=== PATIENT | female | born 1965 | race Caucasian/White ===

== ENCOUNTER 2017-04-29 19:07 | Emergency (ER) | payer OTHER ==
[2017-04-29 19:13] VITALS: BP 161/104; PULSE 114; TEMP 98; BMI 26.6
--- NOTE | 2017-04-29 19:13 | PDOC ---
Rapid Medical Evaluation Time Seen by Provider: 04/29/17 19:09 Medical Evaluation: Allergies Allergy/AdvReac Type Severity Reaction Status Date / Time fentanyl Allergy Severe throat Verified 11/08/15 17:34 closes ketorolac tromethamine AdvReac Intermediate Vomiting Verified 11/08/15 17:34 [From Toradol] morphine AdvReac Mild Itching Verified 11/08/15 17:34 04/29/17 19:09 pt with pain to right leg behind knee across knee to the ankle and swelling to calf. pt denies injury. no PMHX. 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
--- NOTE | 2017-04-29 21:38 | PDOC ---
History of Present Illness - General History Source: Patient Exam Limitations: No Limitations - History of Present Illness Initial Comments: 04/29/17 21:55 The patient is a 51 year old female with a significant PMH of sciatica who presents to the emergency department with right leg pain for the past week and a half. The patient states the pain worsened two days ago when it was difficult for her to walk or stand on her feet. The patient has been in bed for the past 3 days due to increased right leg pain on exertion. The patient describes the right leg pain as a constant throbbing pain that radiates from the back of the right knee to the right ankle. The patient reports she took Motrin with no relief of symptoms. The patient states this does not feel like her sciatica. The patient denies chest pain, shortness of breath, headache and dizziness. Denies fever, chills, nausea, vomit, diarrhea and constipation. Allergies: NKA Past surgical history: None reported Social history: No reported alcohol, drug, or cigarette use. PCP: Dr. Cochran <Maureen Cadena - Last Filed: 04/29/17 21:55> <Yenifer Luque - Last Filed: 04/29/17 22:50> - General Chief Complaint: Pain, Acute Stated Complaint: RT LEG PAIN Time Seen by Provider: 04/29/17 19:09 Past History <Maureen Cadena - Last Filed: 04/29/17 21:55> - Past Medical History Anemia: No Asthma: No Cancer: No Cardiac Disorders: No CVA: No COPD: No CHF: No Dementia: No Diabetes: No GI Disorders: Yes (gerd) Disorders: Yes (UTI) HTN: Yes Hypercholesterolemia: No Liver Disease: No Seizures: No Thyroid Disease: No - Surgical History Abdominal Surgery: Yes (tubal ligation) Cholecystectomy: Yes (1999) - Immunization History Immunization Up to Date: Yes - Suicide/Smoking/Psychosocial Hx Smoking Status: No Smoking History: Former smoker Have you smoked in the past 12 months: No Number of Cigarettes Smoked Daily: 0 If you are a former smoker, when did you quit?: years ago Information on smoking cessation initiated: No Hx Alcohol Use: No Drug/Substance Use Hx: No Substance Use Type: None Hx Substance Use Treatment: No <Yenifer Luque - Last Filed: 04/29/17 22:50> - Past Medical History Allergies/Adverse Reactions: Allergies Allergy/AdvReac Type Severity Reaction Status Date / Time fentanyl Allergy Severe throat Verified 11/08/15 17:34 closes ketorolac tromethamine AdvReac Intermediate Vomiting Verified 11/08/15 17:34 [From Toradol] morphine AdvReac Mild Itching Verified 11/08/15 17:34 Home Medications: Ambulatory Orders Diltiazem [Cardizem -] 60 mg PO TID 04/29/17 Ibuprofen 800 mg PO TID #30 tablet 04/29/17 Oxycodone HCl/Acetaminophen [Percocet 5-325 mg Tablet] 1 tab PO Q6H PRN #12 tablet MDD 4 04/29/17 Review of Systems - Review of Systems Able to Perform ROS?: Yes Comments:: 04/29/17 21:57 GENERAL/CONSTITUTIONAL: No fever or chills. No weakness. HEAD, EYES, EARS, NOSE AND THROAT: No change in vision. No ear pain or discharge. No sore throat. CARDIOVASCULAR: No chest pain or shortness of breath. RESPIRATORY: No cough, wheezing, or hemoptysis. GASTROINTESTINAL: No nausea, vomiting, diarrhea or constipation. GENITOURINARY: No dysuria, frequency, or change in urination. MUSCULOSKELETAL: (+) Right leg pain. No joint swelling or pain. No neck or back pain. SKIN: No rash NEUROLOGIC: No headache, vertigo, loss of consciousness, or change in strength/ sensation. ENDOCRINE: No increased thirst. No abnormal weight change. HEMATOLOGIC/LYMPHATIC: No anemia, easy bleeding, or history of blood clots. ALLERGIC/IMMUNOLOGIC: No hives or skin allergy. <Maureen Cadena - Last Filed: 04/29/17 21:55> *Physical Exam - Vital Signs Last Vital Signs Temp Pulse Resp BP Pulse Ox 98 F 114 H 18 161/104 99 04/29/17 19:10 04/29/17 19:10 04/29/17 19:10 04/29/17 19:10 04/29/17 19:10 - Physical Exam Comments: 04/29/17 21:58 GENERAL: Awake, alert, and fully oriented, in no acute distress HEAD: No signs of trauma EYES: PERRLA, EOMI, sclera anicteric, conjunctiva clear ENT: Auricles normal inspection, hearing grossly normal, nares patent, oropharynx clear without exudates. Moist mucosa NECK: Normal ROM, supple, no lymphadenopathy, JVD, or masses LUNGS: Breath sounds equal, clear to auscultation bilaterally. No wheezes, and no crackles HEART: Regular rate and rhythm, normal S1 and S2, no murmurs, rubs or gallops ABDOMEN: Soft, nontender, normoactive bowel sounds. No guarding, no rebound. No masses BACK: (+) Some tenderness to the right lower back. EXTREMITIES: (+) 3/5 strength with dorsiflexion. (+) 4/5 strength with knee flexion. (+) Tender to palpation of the entire right leg. Normal range of motion , no edema. No clubbing or cyanosis. No cords or erythema. NEUROLOGICAL: Cranial nerves II through XII grossly intact. Normal speech, normal gait SKIN: Warm, Dry, normal turgor, no rashes or lesions noted. <Maureen Cadena - Last Filed: 04/29/17 21:55> - Vital Signs Last Vital Signs Temp Pulse Resp BP Pulse Ox 98 F 114 H 18 161/104 99 04/29/17 19:10 04/29/17 19:10 04/29/17 19:10 04/29/17 19:10 04/29/17 19:10 <Yenifer Luque - Last Filed: 04/29/17 22:50> ED Treatment Course - Medications Given in the ED: ED Medications Discontinued Medications Generic Name Dose Route Start Last Admin Trade Name Freq PRN Reason Stop Dose Admin Oxycodone/Acetaminophen 1 combo 04/29/17 21:39 04/29/17 21:51 Percocet 5/325 - PO 04/29/17 21:40 1 combo ONCE ONE Administration <Maureen Cadena - Last Filed: 04/29/17 21:55> *DC/Admit/Observation/Transfer - Attestations Scribe Attestion: 04/29/17 22:00 Documentation prepared by Maureen Cadena, acting as medical oncologist for Samuel Ruiz MD. <Maureen Cadena - Last Filed: 04/29/17 21:55> - Discharge Dispostion Admit: No <Yenifer Luque - Last Filed: 12/04/17 22:50> Diagnosis at time of Disposition: Leg pain, right - Discharge Dispostion Disposition: HOME Condition at time of disposition: Stable - Referrals Referrals: Tricia Cochran MD [Primary Care Provider] - Smith Luna MD [Staff Physician] - - Patient Instructions Printed Discharge Instructions: DI for Leg Pain, DI for Low Back Pain Additional Instructions: Your ultrasound study was negative today for DVT, Rhoades's cyst. Please follow- up with Dr. Luna within the next 2-3 days to have him evaluate both your leg and back. Please take the Motrin 800 mg 3 times a day not to exceed 3000 mg a day. Your also prescribed Percocet as needed for pain. Please follow the dosing instructions on the bottle. You may use heat packs to both the leg in the lower back to help relieve her symptoms. Return to the emergency department if you have worsening leg pain, numbness and tingling of the leg, fevers, chills, shortness of breath, bladder or bowel incontinence, or any changes in your symptoms. - Post Discharge Activity
== END 2017-04-29 22:52 | disposition home or self-care (01) ==
LOC: JERFT 19:07
DX: M79.604 Pain in right leg (principal); K21.9 Gastro-esophageal reflux disease without esophagitis; I10 Essential (primary) hypertension; Z87.891 Personal history of nicotine dependence
CPT/HCPCS: 93971-TC; 99281-25

== ENCOUNTER 2017-07-30 07:50 | Observation (INO) | payer OTHER ==
[2017-07-30 08:03] VITALS: BMI 28.1
--- NOTE | 2017-07-30 08:19 | PDOC ---
History of Present Illness <FavianJessica - Last Filed: 07/30/17 09:42> - History of Present Illness Initial Comments: 07/30/17 08:51 The patient is a 52 year old female with a history of HTN, Tachycardia, who presents for evaluation of chest pain. The patient states that her BP was elevated yesterday with an associated headache. She noted that around 4 am she woke up out of sleep with left sided chest pressure and sharp pain with associated nausea prompting her presentation to the ED for evaluation. She states that she had similar symptoms in the past when her BP is elevated, but states that her current symptoms are the worst they have ever been. She otherwise denies fevers, chills, vomiting, abdominal pain, or changes with urination or bowel movements. <RadhaRiley - Last Filed: 07/30/17 10:20> - General Chief Complaint: Chest Pain Stated Complaint: CHEST PAIN Time Seen by Provider: 07/30/17 08:04 Past History <FavianJessica - Last Filed: 07/30/17 09:42> - Past Medical History Anemia: No Asthma: No Cancer: No Cardiac Disorders: No CVA: No COPD: No CHF: No Dementia: No Diabetes: No GI Disorders: Yes (gerd) Disorders: Yes (UTI) HTN: Yes Hypercholesterolemia: No Liver Disease: No Seizures: No Thyroid Disease: No - Surgical History Abdominal Surgery: Yes (tubal ligation) Cholecystectomy: Yes (1999) - Immunization History Immunization Up to Date: Yes - Suicide/Smoking/Psychosocial Hx Smoking Status: No Smoking History: Former smoker Have you smoked in the past 12 months: No Number of Cigarettes Smoked Daily: 0 If you are a former smoker, when did you quit?: years ago Information on smoking cessation initiated: No Hx Alcohol Use: No Drug/Substance Use Hx: No Substance Use Type: None Hx Substance Use Treatment: No <RadhaRiley - Last Filed: 07/30/17 10:20> - Past Medical History Allergies/Adverse Reactions: Allergies Allergy/AdvReac Type Severity Reaction Status Date / Time fentanyl Allergy Severe throat Verified 07/30/17 07:58 closes ketorolac tromethamine AdvReac Intermediate Vomiting Verified 07/30/17 07:58 [From Toradol] morphine AdvReac Mild Itching Verified 07/30/17 07:58 Home Medications: Ambulatory Orders Diltiazem [Cardizem -] 60 mg PO BID 04/29/17 Ibuprofen 800 mg PO TID #30 tablet 04/29/17 Review of Systems - Review of Systems Comments:: 07/30/17 08:57 Constitutional: No fevers, chills, fatigue, malaise HEENT: No Rhinorrhea, nasal congestion, visual changes Cardiovascular: Chest pain. No syncope, palpitations, lightheadedness Respiratory: No Cough, SOB, Hemoptysis, Gastrointestinal: Nausea. No Abdominal pain, Vomiting, Constipation, Diarrhea, Melena Genitourinary: No Dysuria, Frequency, Urgency, Hesitancy, Hematuria, Flank pain Musculoskeletal: No Myalgia, arthralgia Skin: No rashes, itching, bruising, pallor Neurologic: Headache. No Dizziness, Numbness, Weakness, or Tingling Psychiatric: No Hallucinations. No SI or HI <Riley Garcia - Last Filed: 07/30/17 10:20> *Physical Exam - Vital Signs Last Vital Signs Temp Pulse Resp BP Pulse Ox 97.4 F L 86 17 147/93 100 07/30/17 07:58 07/30/17 09:31 07/30/17 09:31 07/30/17 09:31 07/30/17 09:31 <Jessica Ballesteros - Last Filed: 07/30/17 09:42> - Vital Signs Last Vital Signs Temp Pulse Resp BP Pulse Ox 97.4 F L 123 H 18 158/102 99 07/30/17 07:58 07/30/17 07:58 07/30/17 07:58 07/30/17 07:58 07/30/17 07:58 - Physical Exam Comments: 07/30/17 08:58 General Appearance: Nourished. No Apparent Distress HEENT: EOMI, IRENE. No Pharyngeal Erythema, Tonsillar Exudate, Tonsillar Erythema Neck: No Cervical Lymphadenopathy Respiratory/Chest: Lungs Clear, Normal Breath Sounds. No Crackles, Rales, Rhonchi, Wheezing Cardiovascular: Regular Rhythm, Tachycardic Rate. No Murmur, Gallops, Rubs Gastrointestinal/Abdominal: Normal Bowel Sounds, Soft. No Guarding, Rebound, Tenderness Musculoskeletal: No CVA Tenderness Extremity: Normal Capillary Refill Integumentary: Normal Color, Dry, Warm Neurologic: Fully Oriented, Alert, Normal Mood/Affect, Normal Response, <Riley Garcia - Last Filed: 07/30/17 10:20> Heart Score/ECG Review #1 ECG reviewed & interpreted by me at: 08:59 (Tachycardic with poor R wave progression) General ECG Interpretation: Sinus Rhythm, Normal Intervals, No acute ischemic changes Compared to previous ECG there are: Changes noted (New poor R wave progression when compared to 11/08/15) <Riley Garcia - Last Filed: 07/30/17 10:20> ED Treatment Course - LABORATORY CBC & Chemistry Diagram: 07/30/17 08:25 07/30/17 08:25 - ADDITIONAL ORDERS Additional order review: Laboratory Results 07/30/17 07/30/17 08:44 08:25 D-Dimer 374 Sodium 139 Potassium 3.5 Chloride 106 Carbon Dioxide 23 Anion Gap 10 BUN 9 Creatinine 0.6 Creat Clearance w eGFR > 60 Random Glucose 104 Calcium 8.7 Total Bilirubin 0.4 D AST 11 L ALT 17 Alkaline Phosphatase 69 Creatine Kinase 43 Troponin I < 0.02 Total Protein 7.6 Albumin 3.9 07/30/17 08:25 RBC 4.95 MCV 88.0 MCHC 34.3 RDW 13.6 MPV 9.3 D Neutrophils % 75.4 Lymphocytes % 17.5 Monocytes % 4.9 Eosinophils % 1.4 Basophils % 0.8 - Medications Given in the ED: ED Medications Discontinued Medications Generic Name Dose Route Start Last Admin Trade Name Freq PRN Reason Stop Dose Admin Acetaminophen 1,000 mg 07/30/17 08:33 07/30/17 08:54 Ofirmev Injection - IVPB 07/30/17 08:34 1,000 mg ONCE ONE Administration Diltiazem HCl 30 mg 07/30/17 08:33 07/30/17 08:54 Cardizem - PO 07/30/17 08:34 30 mg ONCE ONE Administration <Jessica Ballesteros - Last Filed: 07/30/17 09:42> - LABORATORY CBC & Chemistry Diagram: 07/30/17 08:25 07/30/17 08:25 - RADIOLOGY Radiology Studies Ordered: Category Date Time Status CHEST X-RAY PORTABLE* [RAD] Stat Radiology 07/30/17 08:17 Ordered <Riley Garcia - Last Filed: 07/30/17 10:20> Medical Decision Making - Medical Decision Making 07/30/17 09:42 Dr. Negrete was paged and notified via phone service. <Jessica Ballesteros - Last Filed: 07/30/17 09:42> - Medical Decision Making 07/30/17 09:00 The patient is a 52 year old female with a history of HTN, Tachycardia, who presents for evaluation of chest pain. Differential includes but is not limited to: ACS, PE, Pneumonia, Musculoskeletal, infectious, metabolic derangement. Given the patient's history and physical exam, we will obtain a cbc, cmp, d-dimer, troponin, chest plain film to evaluate for possible etiologies. We will treat in the meantime with iv tylenol and diltiazem. We will continue to monitor and reassess. 07/30/17 09:43 CBC, cmp, d-dimer, troponin are unremarkable. Chest plain film is unremarkable as read by our radiologist. EKG demonstrated no acute ischemic changes, but does demonstrate new poor R wave progression when compared with prior. 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 Negrete. 07/30/17 10:18 We discussed the case with Dr. Negrete who agrees with observation admission for further work up. We discussed the case with the hospitalist team who accepted the patient for admission. <Riley Garcia - Last Filed: 07/30/17 10:20> *DC/Admit/Observation/Transfer <Jessica Ballesteros - Last Filed: 07/30/17 09:42> - Discharge Dispostion Admit: Yes <Riley Garcia - Last Filed: 07/30/17 10:20> Diagnosis at time of Disposition: Chest pain Qualifiers: Chest pain type: unspecified Qualified Code(s): R07.9 - Chest pain, unspecified - Discharge Dispostion Condition at time of disposition: Stable - Referrals Referrals: Tricia Cochran MD [Primary Care Provider] - - Patient Instructions - Post Discharge Activity
[2017-07-30] MEDS ORDERED: dilTIAZem HCL 30 MG TABLET (FP) PO ONE (08:33)
[2017-07-30] MEDS ORDERED: ACETAMINOPHEN 1000 MG/100 ML VIAL (NON FORMULARY) IVPB ONE (08:33)
[2017-07-30] MEDS ORDERED: ACETAMINOPHEN INJECTION 100 ML IVPB ONE (08:47)
[2017-07-30] MEDS ORDERED: dilTIAZem HCL 30 MG TABLET (FP) ONE (08:47)
[2017-07-30 08:48] LABS: BASO % 0.8 % (0-2.0); EOS % 1.4 % (0-4.5); HEMATOCRIT 43.6 % (32.4-45.2); HEMOGLOBIN 14.9 GM/dL (10.7-15.3); LYMPH % 17.5 % (8-40); MCH 30.2 pg (25.7-33.7); MCHC 34.3 g/dl (32.0-36.0); MEAN PLT VOLUME 9.3 fl (7.5-11.1); MONO % 4.9 % (3.8-10.2); NEUT % 75.4 % (42.8-82.8); PLATELET COUNT 220 K/MM3 (134-434); RBC 4.95 M/mm3 (3.60-5.2); RDW 13.6 % (11.6-15.6); WHITE BLOOD COUNT 8.3 K/mm3 (4.0-10.0)
[2017-07-30 09:07] LABS: ALBUMIN 3.9 g/dl (3.4-5.0); ANION GAP 10 (8-16); BILIRUBIN,TOTAL 0.4 mg/dL (0.2-1.0); BLOOD UREA NITROGEN 9 mg/dL (7-18); CALCIUM 8.7 mg/dL (8.5-10.1); CHLORIDE 106 mmol/L (98-107); CO2 23 mmol/L (21-32); CREATININE 0.6 mg/dL (0.55-1.02); GLUCOSE,RANDOM 104 mg/dL (74-106); POTASSIUM 3.5 mmol/L (3.5-5.1); SGOT/AST 11 U/L (15-37); SGPT/ALT 17 U/L (12-78); SODIUM 139 mmol/L (136-145); TOT PROT 7.6 g/dl (6.4-8.2)
[2017-07-30 09:10] LABS: ALK PHOS 69 U/L (45-117)
--- NOTE | 2017-07-30 09:44 | PDOC ---
Attending Attestation - Resident Resident Name: Riley Garcia - ED Attending Attestation I have performed the following: I have examined & evaluated the patient, The case was reviewed & discussed with the resident, I agree w/resident's findings & plan, Exceptions are as noted - HPI HPI: 07/30/17 09:39 52y/o female with history of tachycardia and hypertension, fibromyalgia presents with headache and left chest discomfort since last night in the setting of elevated blood pressures since yesterday. Patient took extra doses of her amlodipine without improvement, presents today after the chest pain started. Pain is nonexertional, at baseline has unlimited exercise tolerance. No cough or fevers or chills. No recent leg swelling. 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 - Physicial Exam PE: 07/30/17 09:40 Blood pressure slightly elevated, heart rate 92 on my exam Regular, no murmurs Lungs are clear No edema Neurologically intact - Medical Decision Making 07/30/17 09:41 Patient seen and evaluated with the resident. I agree with the overall evaluation, assessment, and management with the following summary of visit: 52-year-old female with atypical chest pain and headache in the setting of elevated blood pressures for one day, otherwise well-appearing and neurologically intact. Dose of diltiazem for tachycardia and elevated blood pressure, vitals improved Labs including troponin and d-dimer sent and normal Chest x-ray negative EKG without acute ischemia but compared to 2016 has poor R-wave progression in the precordial leads. We'll discuss plan with Dr. Negrete Heart Score/ECG Review #1 ECG reviewed & interpreted by me at: 07:58 General ECG Interpretation: Sinus Rhythm (slight tachy at 109), Normal Intervals (qtc 441), No acute ischemic changes (PRWP, Q3 unchanged c/w 11/09)
[2017-07-30] MEDS ORDERED: ASPIRIN 325 MG ENTERIC COATED TABLET (FP) PO ONE (11:10)
--- NOTE | 2017-07-30 11:27 | HP ---
CHIEF COMPLAINT: chest pain, headache PCP: Dr. Cochran HISTORY OF PRESENT ILLNESS: 52 year old female with a history of hypertension and GERD presented to the ED complaining of headache and left sided chest pain of 1 day duration. Patient states that yesterday she went out with her friends. Her headache started early yesterday evening at home. She checked her blood pressure, found it to be elevated, and took 10mg norvasc. Her BP did not reduce on the norvasc and so she took 5 more of norvasc. Later that night she took 10 more of norvasc for a total of 25mg that evening. She went to sleep and woke up at 4am with continued headache and new L sided chest pain that did not radiate to her neck or her arm. She reported it as a pressure or tightness at a 7-8/10 in severity. She checked her BP again and took an additional 10mg of norvasc as well as 30mg of cardizem. She reported to me that she does not take norvasc regularly and only takes it as needed for blood pressure. Denies blurry vision. She presented to the emergency department when the chest pain did not go away. She states that she can sometimes get episodes of chest pain and pressure that are related to her blood pressure in the past, but nothing of this caliber. 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 She states the norvasc is not prescribed to her, but the cardizem is. She states that she sees Dr. Negrete for cardiology but has not seen him in a while. She had a stress test done in 2013 along with an echo, which she claims were within normal limits. ER course was notable for: (1) tachycardia on EKG, similar to prior in November 2016 (2) negative troponin (3) H&H/chemistries within normal limits Recent Travel: unknown PAST MEDICAL HISTORY: HTN, GERD PAST SURGICAL HISTORY: tubal ligation, cholecystectomy Social History: Smoking: former smoker, quit 30 years ago Alcohol: current social drinker Drugs: denies Family History: Mother: HTN, HLD, Lung CA, father: HTN, HLD Allergies fentanyl Allergy (Severe, Verified 07/30/17 07:58) throat closes ketorolac tromethamine [From Toradol] Adverse Reaction (Intermediate, Verified 07/30/17 07:58) Vomiting morphine Adverse Reaction (Mild, Verified 07/30/17 07:58) Itching HOME MEDICATIONS: Home Medications Medication Instructions Recorded Diltiazem [Cardizem -] 60 mg PO BID 04/29/17 Ibuprofen 800 mg PO TID #30 tablet 04/29/17 REVIEW OF SYSTEMS CONSTITUTIONAL: Absent: fever, chills, diaphoresis, generalized weakness, malaise, loss of appetite, weight change HEENT: Absent: rhinorrhea, nasal congestion, throat pain, throat swelling, difficulty swallowing, mouth swelling, ear pain, eye pain, visual changes CARDIOVASCULAR: chest pain Absent: syncope, palpitations, irregular heart rate, lightheadedness, peripheral edema RESPIRATORY: Absent: cough, shortness of breath, dyspnea with exertion, orthopnea, wheezing, stridor, hemoptysis GASTROINTESTINAL: Absent: abdominal pain, abdominal distension, nausea, vomiting, diarrhea, constipation, melena, hematochezia GENITOURINARY: Absent: dysuria, frequency, urgency, hesitancy, hematuria, flank pain, genital pain MUSCULOSKELETAL: Absent: myalgia, arthralgia, joint swelling, back pain, neck pain SKIN: Absent: rash, itching, pallor HEMATOLOGIC/IMMUNOLOGIC: Absent: easy bleeding, easy bruising, lymphadenopathy, frequent infections ENDOCRINE: Absent: unexplained weight gain, unexplained weight loss, heat intolerance, cold intolerance NEUROLOGIC: headache Absent: focal weakness or paresthesias, dizziness, unsteady gait, seizure, mental status changes, bladder or bowel incontinence PSYCHIATRIC: Absent: anxiety, depression, suicidal or homicidal ideation, hallucinations. PHYSICAL EXAMINATION Vital Signs - 24 hr 07/30/17 07/30/17 07/30/17 07:58 09:25 09:31 Temperature 97.4 F L Pulse Rate 123 H Pulse Rate [ 86 Apical] Respiratory 18 17 Rate Blood Pressure 158/102 Blood Pressure 147/93 [Right Arm] O2 Sat by Pulse 99 98 100 Oximetry (%) GENERAL: A&O x 3, no distress EYES: PERRLA, EOMI ENT: Moist mucus membranes NECK: No JVD LUNGS: CTA HEART: RRR, no murmurs ABDOMEN: soft, nontender, nondistended, BS present NEUROLOGICAL: Cranial nerves II-XII intact. Normal speech. Normal gait. Motor strength 5/5 b/l SKIN: Warm, dry, normal turgor, no rashes or lesions noted, normal capillary refill. Laboratory Results - last 24 hr 07/30/17 07/30/17 07/30/17 08:25 08:25 08:44 WBC 8.3 RBC 4.95 Hgb 14.9 Hct 43.6 MCV 88.0 MCH 30.2 MCHC 34.3 RDW 13.6 Plt Count 220 MPV 9.3 D Neutrophils % 75.4 Lymphocytes % 17.5 Monocytes % 4.9 Eosinophils % 1.4 Basophils % 0.8 D-Dimer 374 Sodium 139 Potassium 3.5 Chloride 106 Carbon Dioxide 23 Anion Gap 10 BUN 9 Creatinine 0.6 Creat Clearance w eGFR > 60 Random Glucose 104 Calcium 8.7 Total Bilirubin 0.4 D AST 11 L ALT 17 Alkaline Phosphatase 69 Creatine Kinase 43 Troponin I < 0.02 Total Protein 7.6 Albumin 3.9 ASSESSMENT/PLAN: 52 year old female with a history of HTN and GERD is admitted to the hospital for headache and chest pain, rule out ACS #Rule out ACS: unlikely given troponin and clinical picture, but will trend -telemetry admission, cardiac monitoring -aspirin 325 now, then 81mg QD -atorvastatin 40mg HS -repeat cardiac profile at 2pm -Lipid panel in AM -replete electrolytes as necessary -echocardiogram -cardiology consult: Dr. Negrete appreciated -may need stress testing this admission #Hypertension: stable now -continue cardizem 60mg BID #FEN -No standing fluids -replete lytes in AM -sodium-controlled diet #Prophylaxis -Heparin 5000 subq TID #Disposition: -Admit to telemetry Visit type - Emergency Visit Emergency Visit: Yes ED Registration Date: 07/30/17 Care time: The patient presented to the Emergency Department on the above date and was hospitalized for further evaluation of their emergent condition. - New Patient This patient is new to me today: Yes Date on this admission: 07/30/17 - Critical Care Critical Care patient: No Hospitalist Screening - Colonoscopy Questionnaire Colonoscopy Questionnaire: Colonoscopy Questionnaire - Patient: 50 - 75 years old and never had a screening colonoscopy: Unknown History of colon or rectal polyps, or CA: Unknown History of IBD, Crohn's disease or UC: Unknown History of abdominal radiation therapy as a child: Unknown - Relative: 1 with colon or rectal CA, or polyps at age 60 or younger: Unknown Colon or rectal CA diagnosed at age 45 or younger: Unknown Multiple relatives with colon or rectal CA: Unknown - Outcome: Screening Result: Negative Screen
--- NOTE | 2017-07-30 11:28 | PN ---
Teaching Attending Note Name of Resident: Jose Levin ATTENDING PHYSICIAN STATEMENT I saw and evaluated the patient. I reviewed the resident's note and discussed the case with the resident. I agree with the resident's findings and plan as documented. SUBJECTIVE: This is a 52 year old woman with a history of GERD, HTN, migraines who comes to the ED complaining of chest pain and headache. She has had a right frontal headache for the last few days. She says she experiences this type of headache when her BP is high. She takes Norvasc as needed. Yesterday she found her BP to be high and she took a total of 25 mg of Norvasc. This morning, she still had the headache and she felt pressure in the left side of her chest. She took an additional 10 mg of Norvasc and her usual dose of Cardizem. When the symptoms did not improve, she came to the ED. She had a normal echo and stress test 05/26/13. OBJECTIVE: Vital Signs Period Temp Pulse Resp BP Sys/Quiroz Pulse Ox Last 24 Hr 97.4 F 86-123 17-18 147-158/93-102 98-100 HEART: S1S2, RRR LUNGS: Clear ABDOMEN: Soft, non-tender, non-distended, normal BS EXTREMITIES: No edema NEUROLOGICAL: Alert, oriented, no focal deficits Laboratory Tests 07/30/17 07/30/17 07/30/17 08:25 08:25 08:44 WBC 8.3 RBC 4.95 Hgb 14.9 Hct 43.6 MCV 88.0 MCH 30.2 MCHC 34.3 RDW 13.6 Plt Count 220 MPV 9.3 D Neutrophils % 75.4 Lymphocytes % 17.5 Monocytes % 4.9 Eosinophils % 1.4 Basophils % 0.8 D-Dimer 374 Sodium 139 Potassium 3.5 Chloride 106 Carbon Dioxide 23 Anion Gap 10 BUN 9 Creatinine 0.6 Creat Clearance w eGFR > 60 Random Glucose 104 Calcium 8.7 Total Bilirubin 0.4 D AST 11 L ALT 17 Alkaline Phosphatase 69 Creatine Kinase 43 Troponin I < 0.02 Total Protein 7.6 Albumin 3.9 Home Medications Medication Instructions Recorded Diltiazem [Cardizem -] 60 mg PO BID 04/29/17 Ibuprofen 800 mg PO TID #30 tablet 04/29/17 ASSESSMENT AND PLAN: 1. Chest pain 2. Uncontrolled HTN 3. Headache 4. GERD
[2017-07-30] MEDS: HEPARIN NA (PORCINE) 5,000 UNITS/ML 1ML VIAL SQ SCH ×2 (11:30→17:34)
--- NOTE | 2017-07-30 11:31 | HP ---
CHIEF COMPLAINT: chest pain PCP: Dr. Gaston HISTORY OF PRESENT ILLNESS: 52 year old female with a past medical history of GERD and migraines, presents to the emergency room after being woken up from sleep due to headache and chest pain at 5am this morning. Headache started around right face and radiated to forehead, sharp, 10/10. Chest pain came after, pressure like, mid left chest. At that time she checked her blood pressure, systolic in 180s. She then took 10mg of norvasc and 30mg of cardizem. She did not experience relief so she called a taxi to bring her to hospital. Patient states that yesterday she was having similar headache ian in the day, she took norvasc multiple times throughout the day to try an alleviate pain. As per patient, whenever she gets a headache, its due to her blood pressure, so she will take this medication intermittently. She took a total of 35mg of norvasc in the past 24hrs. She denies blurry vision, numbness, tingling, jaw pain, n, v, palpitations, leg swelling, sob. She had a stress test in 2013 which was negative. In the ER, patient was hypertensive and tachycardic. ECG showed decreased r wave progression in leads v3-v6, when compared to pervious. Recent Travel: no PAST MEDICAL HISTORY: GERD, Migraines, herniated disc PAST SURGICAL HISTORY: tubal ligation, cholecystectomy Social History: Smoking:occasional in her 20s; quit 30yrs ago Alcohol:social Drugs: no Family History: Allergies fentanyl Allergy (Severe, Verified 07/30/17 07:58) throat closes ketorolac tromethamine [From Toradol] Adverse Reaction (Intermediate, Verified 07/30/17 07:58) Vomiting morphine Adverse Reaction (Mild, Verified 07/30/17 07:58) Itching HOME MEDICATIONS: Home Medications Medication Instructions Recorded Diltiazem [Cardizem -] 60 mg PO BID 04/29/17 Ibuprofen 800 mg PO TID #30 tablet 04/29/17 REVIEW OF SYSTEMS as above PHYSICAL EXAMINATION Vital Signs - 24 hr 07/30/17 07/30/17 07/30/17 07:58 09:25 09:31 Temperature 97.4 F L Pulse Rate 123 H Pulse Rate [ 86 Apical] Respiratory 18 17 Rate Blood Pressure 158/102 Blood Pressure 147/93 [Right Arm] O2 Sat by Pulse 99 98 100 Oximetry (%) GENERAL: Awake, alert, and fully oriented, in no acute distress. HEAD: Normal with no signs of trauma. NECK: Normal range of motion, supple without lymphadenopathy, JVD, or masses. LUNGS: Breath sounds equal, clear to auscultation bilaterally. No wheezes, and no crackles. No accessory muscle use. HEART: Regular rate and rhythm, normal S1 and S2 without murmur, rub or gallop. ABDOMEN: Soft, nontender, not distended, normoactive bowel sounds, no guarding, no rebound, no masses. No hepatomegaly or splenomegaly. UPPER EXTREMITIES: 2+ pulses, warm, well-perfused. No cyanosis. No clubbing. No peripheral edema. LOWER EXTREMITIES: 2+ pulses, warm, well-perfused. No calf tenderness. No peripheral edema. NEUROLOGICAL: Cranial nerves II-XII intact. Normal speech. PSYCHIATRIC: Cooperative. Good eye contact. Appropriate mood and affect. SKIN: Warm, dry, normal turgor, no rashes or lesions noted, normal capillary refill. Laboratory Results - last 24 hr 07/30/17 07/30/17 07/30/17 08:25 08:25 08:44 WBC 8.3 RBC 4.95 Hgb 14.9 Hct 43.6 MCV 88.0 MCH 30.2 MCHC 34.3 RDW 13.6 Plt Count 220 MPV 9.3 D Neutrophils % 75.4 Lymphocytes % 17.5 Monocytes % 4.9 Eosinophils % 1.4 Basophils % 0.8 D-Dimer 374 Sodium 139 Potassium 3.5 Chloride 106 Carbon Dioxide 23 Anion Gap 10 BUN 9 Creatinine 0.6 Creat Clearance w eGFR > 60 Random Glucose 104 Calcium 8.7 Total Bilirubin 0.4 D AST 11 L ALT 17 Alkaline Phosphatase 69 Creatine Kinase 43 Troponin I < 0.02 Total Protein 7.6 Albumin 3.9 ASSESSMENT/PLAN: 52 year old female with a past medical history of GERD and migraines, c/o headache and chest pain. Rule out acute coronary syndrome. #Chest pain; r/o ACS -cardiac monitoring -questionable ECG changes; poor r wave progression -ASA -statin -BB or cotn cardizem -first troponin negative; trend -echo -stess test pending cardio consult FEN: Fluids: n/a Electrolytes:wnl Diet: cardiac VTE: heparin sq Disposition: cardiac tele Case discussed with Dr. Emily Ramos PGY-2 Problem List - Problem (1) Chest pain Code(s): R07.9 - CHEST PAIN, UNSPECIFIED Qualifiers: Chest pain type: unspecified Qualified Code(s): R07.9 - Chest pain, unspecified Visit type - Emergency Visit Emergency Visit: Yes ED Registration Date: 07/30/17 Care time: The patient presented to the Emergency Department on the above date and was hospitalized for further evaluation of their emergent condition. - New Patient This patient is new to me today: Yes Date on this admission: 07/30/17 - Critical Care Critical Care patient: No
[2017-07-30] MEDS ORDERED: ASPIRIN 325 MG TABLET ONE (11:37)
[2017-07-30] MEDS: ATORVASTATIN CA 40 MG TABLET (FP) PO SCH ×2 (11:47→21:24)
--- NOTE | 2017-07-30 14:15 | EKG ---
Test Reason : Blood Pressure : / mmHG Vent. Rate : 109 BPM Atrial Rate : 109 BPM P-R Int : 158 ms QRS Dur : 074 ms QT Int : 328 ms P-R-T Axes : 044 023 029 degrees QTc Int : 441 ms SINUS TACHYCARDIA POSSIBLE LEFT ATRIAL ENLARGEMENT SEPTAL INFARCT , AGE UNDETERMINED ABNORMAL ECG WHEN COMPARED WITH ECG OF 08-NOV-2015 19:00, NO SIGNIFICANT CHANGE WAS FOUND Confirmed by MD Padilla, Pantera ([id number]) on 07/30/2017 2:15:10 PM Referred By: Confirmed By:Pantera Causey MD
[2017-07-30] MEDS ORDERED: oxyCODONE HCL 5 MG TABLET PO ONE (18:00)
[2017-07-30] MEDS ORDERED: ACETAMINOPHEN 325 MG TABLET (FP) PO ONE (18:00)
--- NOTE | 2017-07-30 18:09 | CON.CARD ---
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 The patient states that her BP was elevated yesterday with an associated headache. She noted that around 4 am she woke up out of sleep with left sided chest pressure and sharp pain with associated nausea lasting several hours, prompting her presentation to the ED for evaluation. She states that she had similar symptoms in the past when her BP is elevated, but states that her current symptoms are the worst they have ever been. She otherwise denies fevers , chills, vomiting, abdominal pain, or changes with urination or bowel movements. Pt had a stress treadmill MIBI in 2013 that was negative for ischemia; walked 9 minutes using Akil protocol. She denies smoking cigarettes; she occasionally has a few alcoholic drinks. She says she still has menstruations (though hx notes LMP 2012?). She has been very sad since the of her mother a year ago. Her 13 yrs ago. - History Source History Provided By: Patient, Medical Record Limitations to Obtaining History: No Limitations - Past Medical History Cardio/Vascular: Yes: HTN ...LMP: 07/11/17 Psych: Yes: Anxiety, Depression - Alcohol/Substance Use Hx Alcohol Use: No - Smoking History Smoking history: Former smoker Have you smoked in the past 12 months: No Aproximately how many cigarettes per day: 0 If you are a former smoker, when did you quit?: years ago Home Medications - Allergies Allergies/Adverse Reactions: Allergies Allergy/AdvReac Type Severity Reaction Status Date / Time fentanyl Allergy Severe throat Verified 07/30/17 07:58 closes ketorolac tromethamine AdvReac Intermediate Vomiting Verified 07/30/17 07:58 [From Toradol] morphine AdvReac Mild Itching Verified 07/30/17 07:58 - Home Medications Home Medications: Ambulatory Orders Diltiazem [Cardizem -] 60 mg PO BID 04/29/17 Ibuprofen 800 mg PO TID PRN 07/30/17 Lansoprazole [Prevacid] 30 mg PO HS 07/30/17 Family Disease History - Family Disease History Family Disease History: Other: Father (cerebral hemorrhage in his 70s) Review of Systems - Review of Systems Constitutional: reports: No Symptoms Eyes: reports: No Symptoms HENT: reports: No Symptoms Neck: reports: No Symptoms Cardiovascular: reports: Chest Pain Respiratory: reports: No Symptoms Gastrointestinal: reports: No Symptoms Genitourinary: reports: No Symptoms Breasts: reports: No Symptoms Reported Musculoskeletal: reports: No Symptoms Integumentary: reports: No Symptoms Neurological: reports: No Symptoms Endocrine: reports: No Symptoms Hematology/Lymphatic: reports: No Symptoms Psychiatric: reports: Anxiety, Depression - Risk Factors Known Risk Factors: Yes: Age, Hypertension. No: Smoking Vital Signs: Vital Signs Temperature 98.4 F 07/30/17 15:43 Pulse Rate 71 07/30/17 17:58 Respiratory Rate 18 07/30/17 17:58 Blood Pressure 96/54 07/30/17 17:58 O2 Sat by Pulse Oximetry (%) 98 07/30/17 15:43 Constitutional: Yes: Anxious Eyes: Yes: WNL HENT: Yes: WNL Neck: Yes: WNL Respiratory: Yes: WNL Gastrointestinal: Yes: Soft Renal/: No: Anuria Cardiovascular: Yes: Regular Rate and Rhythm JVD: No Carotid Bruit: No Heart Sounds: Yes: S1, S2 Musculoskeletal: Yes: WNL Extremities: Yes: WNL Edema: No Peripheral Pulses WNL: Yes Integumentary: Yes: WNL Neurological: Yes: WNL Psychiatric: Yes: Other (anxiety) - Other Data Labs, Other Data: CBC, BMP 07/30/17 08:25 07/30/17 08:25 Troponin, BNP 07/30/17 07/30/17 08:25 14:00 Troponin I < 0.02 < 0.02 Troponin, BNP 07/30/17 07/30/17 08:25 14:00 Troponin I < 0.02 < 0.02 Imaging - Results Chest X-ray: Image Reviewed (no acute pathology) Problem List - Problems (1) HTN (hypertension) Assessment/Plan: Pt states her BP was very high recently; she took a total of 25 mg of amlodipine in a day (though the maximum recommended dose is 10 mg daily), but still had BP elevation. She had stopped taking diltiazem for some time. BP is now relatively low with diltiazem 30 mg bid. Code(s): I10 - ESSENTIAL (PRIMARY) HYPERTENSION (2) Atypical chest pain Assessment/Plan: chest pain at rest that may last hours. The pain does not occur with exercise. TNI < 0.02 x 2. F/u lipids and TSH. EKG: NSR; cannot r/o old septal myocardial injury (vs precordial lead misplacement). Repeat EKG. Stress ECHO. Code(s): R07.89 - OTHER CHEST PAIN (3) Hyperlipidemia Assessment/Plan: f/u lipid profile. Code(s): E78.5 - HYPERLIPIDEMIA, UNSPECIFIED (4) Overweight Assessment/Plan: pt says she has been overeating, and wants to change habits and lose weight. She has also been relatively sedentary. Code(s): E66.3 - OVERWEIGHT (5) Anxiety and depression Code(s): F41.8 - OTHER SPECIFIED ANXIETY DISORDERS (6) Migraine headache Assessment/Plan: on topramax Code(s): G43.909 - MIGRAINE, UNSP, NOT INTRACTABLE, WITHOUT STATUS MIGRAINOSUS
[2017-07-30] MEDS: dilTIAZem HCL 60 MG TABLET (FP) PO SCH (21:29)
[2017-07-30] MEDS: TOPIRAMATE 100 MG TABLET PO SCH (22:00)
[2017-07-30] MEDS ORDERED: ZOLPIDEM TARTRATE 5 MG TABLET PO ONE (22:00)
[2017-07-31] MEDS: ACETAMINOPHEN 325 MG TABLET (FP) PO PRN ×3 (03:27→21:56)
[2017-07-31] MEDS: HEPARIN NA (PORCINE) 5,000 UNITS/ML 1ML VIAL SQ SCH ×2 (03:29→09:53)
[2017-07-31 07:12] LABS: ANION GAP 9 (8-16); BLOOD UREA NITROGEN 11 mg/dL (7-18); CALCIUM 8.4 mg/dL (8.5-10.1); CHLORIDE 105 mmol/L (98-107); CHOLESTEROL 157 mg/dL (50-200); CO2 25 mmol/L (21-32); CREATININE 0.7 mg/dL (0.55-1.02); GLUCOSE,RANDOM 79 mg/dL (74-106); HEMATOCRIT 41.2 % (32.4-45.2); LDL CHOLESTEROL (ONLY SJRH) 81 mg/dL (5-100); MCH 30.1 pg (25.7-33.7); MEAN CELL VOLUME 88.4 fl (80-96); PHOSPHOROUS 3.9 mg/dL (2.5-4.9); PLATELET COUNT 213 K/MM3 (134-434); POTASSIUM 3.8 mmol/L (3.5-5.1); RBC 4.66 M/mm3 (3.60-5.2); RDW 13.6 % (11.6-15.6); SODIUM 139 mmol/L (136-145); TRIGLYCERIDES 74 mg/dL (35-160); WHITE BLOOD COUNT 6.7 K/mm3 (4.0-10.0)
[2017-07-31 07:20] LABS: HDL CHOLESTEROL 69 mg/dL (40-60)
[2017-07-31] MEDS ORDERED: ASPIRIN COATED 81 MG TABLET.EC PO SCH (10:00)
--- NOTE | 2017-07-31 10:42 | EKG ---
Test Reason : Blood Pressure : / mmHG Vent. Rate : 073 BPM Atrial Rate : 073 BPM P-R Int : 174 ms QRS Dur : 078 ms QT Int : 410 ms P-R-T Axes : 003 022 015 degrees QTc Int : 451 ms NORMAL SINUS RHYTHM NORMAL ECG WHEN COMPARED WITH ECG OF 30-JUL-2017 07:58, VENT. RATE HAS DECREASED BY 36 BPM CRITERIA FOR SEPTAL INFARCT ARE NO LONGER PRESENT Confirmed by TATA BRIONES, GIOVANNI ([id number]) on 07/31/2017 10:42:29 AM Referred By: BALBIR ALVARADO DR Confirmed By:GIOVANNI PAYTON MD
[2017-07-31] MEDS: TOPIRAMATE 100 MG TABLET PO SCH ×2 (12:34→21:56)
[2017-07-31] MEDS: dilTIAZem HCL 60 MG TABLET (FP) PO SCH ×2 (12:34→21:55)
--- NOTE | 2017-07-31 14:03 | PN ---
Teaching Attending Note Name of Resident: Jose Levin ATTENDING PHYSICIAN STATEMENT I saw and evaluated the patient. I reviewed the resident's note and discussed the case with the resident. I agree with the resident's findings and plan as documented. SUBJECTIVE: no fever or chills . has no CP , has mild HEATH . no SOB OBJECTIVE: NAD CV: RRR Lungs: CTAB ext: no edema ASSESSMENT AND PLAN: 52 y/o lady with h/o HTN, Migraine and GERD who presented with CP and hypertension 1- CP : atypical in nature. echo reviewed ( trace MR, TR) . stress test neg per report no further cardiac w/u f/u with card as out pt 10 yr cardiac risk per Underwood equation is 7.4 %. LDL 81 , will not continue statin , and will have her f/u with Dr. smith . 2- HTN: cont her home cardizem . advised to check her BP daily and report to card as out pt 3- slightly elevated TSH, with Nl FT4. repeat as out pt disp odc home
--- NOTE | 2017-07-31 15:07 | DS ---
Physical Exam: SUBJECTIVE: Patient seen and examined Patient resting in bed NAD. No acute events overnight. Afebrile and hemodynamically stable. denies CP, SOB, cough, diaphoresis, palpitations, lightheadedness. Complains of light headache. OBJECTIVE: Vital Signs Period Temp Pulse Resp BP Sys/Quiroz Pulse Ox Last 24 Hr 97.4 F-98.6 F 71-86 18-20 96-127/54-78 98-98 PHYSICAL EXAM GENERAL: A&O x 3, no distress EYES: PERRLA, EOMI ENT: Moist mucus membranes NECK: No JVD LUNGS: CTA HEART: RRR, no murmurs ABDOMEN: soft, nontender, nondistended, BS present NEUROLOGICAL: Cranial nerves II-XII intact. Normal speech. Normal gait. Motor strength 5/5 b/l SKIN: Warm, dry, normal turgor, no rashes or lesions noted, normal capillary refill. LABS Laboratory Results - last 24 hr 07/31/17 07/31/17 07/31/17 06:30 06:30 06:30 WBC 6.7 RBC 4.66 Hgb 14.0 Hct 41.2 MCV 88.4 MCH 30.1 MCHC 34.0 RDW 13.6 Plt Count 213 MPV 10.0 Sodium 139 Potassium 3.8 Chloride 105 Carbon Dioxide 25 Anion Gap 9 BUN 11 Creatinine 0.7 Random Glucose 79 Hemoglobin A1c % 5.0 Calcium 8.4 L Phosphorus 3.9 Magnesium 2.0 Triglycerides 74 Cholesterol 157 Total LDL Cholesterol 81 HDL Cholesterol 69 H TSH 6.77 H Free T4 0.97 HOSPITAL COURSE: Date of Admission:07/30/17 This is a 52 year old female, former employee of [employer], with PMH of HTN ( followed by Dr Negrete) and GERD, who presented to the ED complaining of h/a and L sided CP x 1D. Prior to symptom onset, patient was out with her friends in the evening. She did not share further details. H/a and CP had simultaneous onset when she came home. She found that her BP was elevated (140 systolic, hogher than normal) and remained elevated despite taking 25 norvasc. When she woke up in the morning her symptoms were unrelieved, which prompted ED visit. She had a stress test done in 2013 along with an echo, which she claims were within normal limits. In ED EKG showed sinus tachy and an old possible septal infact. for ACS and CXR was wnl. She was placed in obs in tele to r/o acs. Her CP resolved with Asa. BP was under contol while at the hospital. Cholesterol panel was WNL. She was seen by Dr Negrete, had a normal TTE and a normal stress test and was discharged home after 24 hr hospital stay. Date of Discharge: 07/31/17 Minutes to complete discharge: 45 Discharge Summary Reason For Visit: CHEST PAIN Current Active Problems Anxiety and depression (Acute) Atypical chest pain (Acute) Chest pain (Acute) HTN (hypertension) (Acute) Hyperlipidemia (Acute) Migraine headache (Acute) Overweight (Acute) Condition: Stable - Instructions Diet, Activity, Other Instructions: You were admitted to the hospital for the treatment of chest pain. It is unlikely that your chest pain is due to an acute cardiac event. Your EKG did not show any abnormalities and your heart enzyme levels were within normal limits. You had a normal stress test performed in the hospital. Medical Recommendations: -Continue your home medications as prescribed before -Do NOT take Norvasc for blood pressure, only take your Cardizem as prescribed by your doctor Referrals: -Make an appointment to see your primary care physician within 1 week of discharge -Make an appointment to see Dr. Negrete, the [facility], within 1 week of discharge If you experience chest pain, shortness of breath, nausea, vomiting, diarrhea , please return to the emergency room. Referrals: Tricia Cochran MD [Primary Care Provider] - 1 Week Les Negrete MD [Staff Physician] - 1 Week Disposition: HOME - Home Medications Comprehensive Discharge Medication List: Ambulatory Orders Diltiazem [Cardizem -] 60 mg PO BID 04/29/17 Lansoprazole [Prevacid] 30 mg PO HS 07/30/17 Problem List - Problems (1) Anxiety and depression Code(s): F41.8 - OTHER SPECIFIED ANXIETY DISORDERS (2) Atypical chest pain Code(s): R07.89 - OTHER CHEST PAIN (3) Chest pain Code(s): R07.9 - CHEST PAIN, UNSPECIFIED Qualifiers: Chest pain type: unspecified Qualified Code(s): R07.9 - Chest pain, unspecified (4) HTN (hypertension) Code(s): I10 - ESSENTIAL (PRIMARY) HYPERTENSION (5) Overweight Code(s): E66.3 - OVERWEIGHT This patient is new to me today: Yes Date on this admission: 07/31/17 Emergency Visit: Yes ED Registration Date: 07/30/17 Care time: The patient presented to the Emergency Department on the above date and was hospitalized for further evaluation of their emergent condition. Critical Care patient: No - Discharge Referral Referred to [facility] Med [facility].C[facility] No
--- NOTE | 2017-07-31 18:42 | PN ---
Progress Note, Physician Chief Complaint: Pt A&OX3; no chest pain. 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 The patient states that her BP was elevated yesterday with an associated headache. She noted that around 4 am she woke up out of sleep with left sided chest pressure and sharp pain with associated nausea lasting several hours, prompting her presentation to the ED for evaluation. She states that she had similar symptoms in the past when her BP is elevated, but states that her current symptoms are the worst they have ever been. She otherwise denies fevers , chills, vomiting, abdominal pain, or changes with urination or bowel movements. Pt had a stress treadmill MIBI in 2013 that was negative for ischemia; walked 9 minutes using Akil protocol. She denies smoking cigarettes; she occasionally has a few alcoholic drinks. She says she still has menstruations (though hx notes LMP 2012?). She has been very sad since the of her mother a year ago. Her 13 yrs ago. - Current Medication List Current Medications: Active Medications Acetaminophen (Tylenol -) 650 mg PO Q6H PRN PRN Reason: FEVER Last Admin: 07/31/17 12:34 Dose: 650 mg Aspirin (Ecotrin -) 81 mg PO DAILY [facility] Last Admin: 07/31/17 12:34 Dose: 81 mg Diltiazem HCl (Cardizem -) 60 mg PO BID [facility] Last Admin: 07/31/17 12:34 Dose: 60 mg Topiramate (Topamax -) 100 mg PO BID [facility] Last Admin: 07/31/17 12:34 Dose: 100 mg - Objective Vital Signs: Vital Signs Temperature 98.5 F 07/31/17 14:12 Pulse Rate 80 07/31/17 14:12 Respiratory Rate 18 07/31/17 14:12 Blood Pressure 125/78 07/31/17 14:12 O2 Sat by Pulse Oximetry (%) 98 07/31/17 14:10 Constitutional: Yes: Well Nourished Eyes: Yes: WNL HENT: Yes: WNL Neck: Yes: WNL Cardiovascular: Yes: WNL Respiratory: Yes: WNL Gastrointestinal: Yes: Soft ...Rectal Exam: Yes: Deferred Genitourinary: No: Anuria Breast(s): Yes: WNL Musculoskeletal: Yes: WNL Extremities: Yes: WNL Edema: No Peripheral Pulses WNL: Yes Integumentary: Yes: WNL Neurological: Yes: Babinski positive Psychiatric: Yes: WNL Labs: CBC, BMP 07/31/17 06:30 07/31/17 06:30 Problem List - Problems (1) HTN (hypertension) Assessment/Plan: ontrolled on ditiazem (change to long-acting 120mg daily bfore discharge home).. Code(s): I10 - ESSENTIAL (PRIMARY) HYPERTENSION (2) Atypical chest pain Assessment/Plan: chest pain at rest that may last hours. The pain does not occur with exercise. TNI < 0.02 x 2. F/u lipids and TSH. EKG: NSR; cannot r/o old septal myocardial injury (vs precordial lead misplacement). EKG today: now normal study (criteria for "septal infarct" no longer present; initial reading of septa infarct yesterday likely due to precordial lead misplacement). Stress ECHO today. Code(s): R07.89 - OTHER CHEST PAIN (3) Hyperlipidemia Assessment/Plan: Total chol: 157; LDL 81 mg/dL; HDL 69; triglycerides 74 mg/dL. Code(s): E78.5 - HYPERLIPIDEMIA, UNSPECIFIED (4) Overweight Assessment/Plan: pt says she has been overeating, and wants to change habits and lose weight. She has also been relatively sedentary. Code(s): E66.3 - OVERWEIGHT (5) Anxiety and depression Code(s): F41.8 - OTHER SPECIFIED ANXIETY DISORDERS (6) Migraine headache Assessment/Plan: on topramax; f/u with neurologist (Dr. Jacobs). Code(s): G43.909 - MIGRAINE, UNSP, NOT INTRACTABLE, WITHOUT STATUS MIGRAINOSUS (7) Opiate dependence Assessment/Plan: unclear whther pthas problem with this class of med; f/u warranted. Code(s): F11.20 - OPIOID DEPENDENCE, UNCOMPLICATED
[2017-07-31] MEDS ORDERED: ZOLPIDEM TARTRATE 5 MG TABLET PO ONE (21:15)
[2017-08-01 04:26] VITALS: TEMP 98.7
[2017-08-01 04:56] VITALS: BP 128/72; PULSE 85
--- NOTE | 2017-08-01 06:56 | PN ---
<Jose Levin - Last Filed: 08/01/17 06:57> Physical Exam: SUBJECTIVE: No changes from yesterday. No chest pain. OBJECTIVE: Vital Signs Period Temp Pulse Resp BP Sys/Quiroz Pulse Ox Last 24 Hr 98.0 F-98.7 F 71-102 18-20 120-147/69-88 98-99 GENERAL: A&O CARDS: RRR PULM: CTA ABD: Soft, nontender, nondistended Laboratory Results - last 24 hr 07/31/17 07/31/17 07/31/17 06:30 06:30 06:30 WBC 6.7 RBC 4.66 Hgb 14.0 Hct 41.2 MCV 88.4 MCH 30.1 MCHC 34.0 RDW 13.6 Plt Count 213 MPV 10.0 Sodium 139 Potassium 3.8 Chloride 105 Carbon Dioxide 25 Anion Gap 9 BUN 11 Creatinine 0.7 Random Glucose 79 Hemoglobin A1c % 5.0 Calcium 8.4 L Phosphorus 3.9 Magnesium 2.0 Triglycerides 74 Cholesterol 157 Total LDL Cholesterol 81 HDL Cholesterol 69 H TSH 6.77 H Free T4 0.97 Active Medications Generic Name Dose Route Start Last Admin Trade Name Freq PRN Reason Stop Dose Admin Acetaminophen 650 mg 07/31/17 03:15 07/31/17 21:56 Tylenol - PO 650 mg Q6H PRN Administration FEVER Aspirin 81 mg 07/31/17 10:00 07/31/17 12:34 Ecotrin - PO 81 mg DAILY TESHA Administration Diltiazem HCl 60 mg 07/30/17 22:00 07/31/17 21:55 Cardizem - PO 60 mg BID TESHA Administration Topiramate 100 mg 07/30/17 22:00 07/31/17 21:56 Topamax - PO 100 mg BID TESHA Administration ASSESSMENT/PLAN: 52 year old female with a history of HTN and GERD is admitted to the hospital for headache and chest pain, rule out ACS #Chest pain: unlikely ACS, more likely medication overdose vs HTN -resolved -stress test negative -Will not need aspirin as oupatient -cardiology consult: Dr. Negrete appreciated -can be discharged #Hypertension: stable now -continue cardizem 60mg BID #FEN -No standing fluids -replete lytes in AM -sodium-controlled diet #Prophylaxis -Heparin 5000 subq TID #Disposition: -pt is discharged Visit type - Emergency Visit Emergency Visit: No - New Patient This patient is new to me today: No - Critical Care Critical Care patient: No <Paul Schulz - Last Filed: 08/01/17 18:41> Physical Exam: pt was dc yesterday, she left this am before I saw her . no events reported by resident
[2017-08-01] MEDS: dilTIAZem HCL 60 MG TABLET (FP) PO SCH (07:55)
[2017-08-01] MEDS: ACETAMINOPHEN 325 MG TABLET (FP) PO PRN (07:56)
--- NOTE | 2017-08-02 10:33 | PN ---
Progress Note, Physician Chief Complaint: Pt A&OX3; no chest pain or paltpiations.. Eager to get home. 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 The patient states that her BP was elevated yesterday with an associated headache. She noted that around 4 am she woke up out of sleep with left sided chest pressure and sharp pain with associated nausea lasting several hours, prompting her presentation to the ED for evaluation. She states that she had similar symptoms in the past when her BP is elevated, but states that her current symptoms are the worst they have ever been. She otherwise denies fevers , chills, vomiting, abdominal pain, or changes with urination or bowel movements. Pt had a stress treadmill MIBI in 2013 that was negative for ischemia; walked 9 minutes using Akil protocol. She denies smoking cigarettes; she occasionally has a few alcoholic drinks. She says she still has menstruations (though hx notes LMP 2012?). She has been very sad since the of her mother a year ago. Her 13 yrs ago. - Objective Vital Signs: Vital Signs Temperature 98.7 F 08/01/17 02:00 Pulse Rate 85 08/01/17 04:55 Respiratory Rate 18 08/01/17 07:00 Blood Pressure 128/72 08/01/17 04:55 O2 Sat by Pulse Oximetry (%) 99 08/01/17 07:00 Constitutional: Yes: Well Nourished Eyes: Yes: WNL HENT: Yes: WNL Neck: Yes: WNL Cardiovascular: Yes: WNL Respiratory: Yes: WNL Gastrointestinal: Yes: WNL ...Rectal Exam: Yes: Deferred Genitourinary: No: Anuria Breast(s): Yes: WNL Musculoskeletal: Yes: WNL Extremities: Yes: WNL Edema: No Peripheral Pulses WNL: Yes Integumentary: Yes: WNL Neurological: Yes: WNL ...Motor Strength: WNL Psychiatric: Yes: WNL Labs: CBC, BMP 07/31/17 06:30 07/31/17 06:30 Problem List - Problems (1) HTN (hypertension) Assessment/Plan: ontrolled on ditiazem (change to long-acting 120mg daily bfore discharge home).. Code(s): I10 - ESSENTIAL (PRIMARY) HYPERTENSION (2) Atypical chest pain Assessment/Plan: Stress treadmill ECHO 07/31/17: no myocaredial ischemia; good exercise capacity and tolerance.Pt was noted to develop transietn (lasting about 30 seoncds slowing of sinus tachycardia during stage 3 of Akil protocol, just before reaching target HR; the HR slowed about 25 beats gradually, then increased again , eventually surpassing targe HR before exercise was stopped. About two miutes into the recovery period, HR, which had decreased to 95 bpm, transiently increase to as much as 130 bpm, then again went below 100 bpm. Pt was asymptomatic throughout; the rhythm always appeared to be sinus; there were no noted blocked P wave. This was discussd by me with an touch up edger, and was deemed benign. Pt says she notices her HR sometime goes up if she is talking with friends; it does this "for no reason", according to her. She has agreed to undergo an event/loop recorder as an outpatient. She denies hx syncope.. Code(s): R07.89 - OTHER CHEST PAIN (3) Hyperlipidemia Assessment/Plan: Total chol: 157; LDL 81 mg/dL; HDL 69; triglycerides 74 mg/dL. Code(s): E78.5 - HYPERLIPIDEMIA, UNSPECIFIED (4) Overweight Assessment/Plan: pt says she has been overeating, and wants to change habits and lose weight. She has also been relatively sedentary. Code(s): E66.3 - OVERWEIGHT (5) Anxiety and depression Code(s): F41.8 - OTHER SPECIFIED ANXIETY DISORDERS (6) Migraine headache Code(s): G43.909 - MIGRAINE, UNSP, NOT INTRACTABLE, WITHOUT STATUS MIGRAINOSUS (7) Opiate dependence Code(s): F11.20 - OPIOID DEPENDENCE, UNCOMPLICATED
== END 2017-08-01 08:00 | disposition home or self-care (01) ==
LOC: JER 07:50 → UNDOADMOB 10:13 → JERBED 10:13 → INTOOBSV 11:01 → OBSVTOIN 11:01 → JERBED 12:20 → J2W 12:40
PROVIDERS: ADMIT Internal Medicine; ATTEND Internal Medicine
PROC: 3E013GC Introduction of Other Therapeutic Substance into Subcutaneous Tissue, Percutaneous Approach (ICD-10-PCS; principal; 2017-07-30)
DX: R07.89 Other chest pain (principal); I10 Essential (primary) hypertension; K21.9 Gastro-esophageal reflux disease without esophagitis; Z88.8 Allergy status to other drugs, medicaments and biological substances; E78.5 Hyperlipidemia, unspecified; E66.3 Overweight; F41.8 Other specified anxiety disorders; G43.909 Migraine, unspecified, not intractable, without status migrainosus; Z87.440 Personal history of urinary (tract) infections; Z87.891 Personal history of nicotine dependence; R94.6 Abnormal results of thyroid function studies; Z68.28 Body mass index [BMI] 28.0-28.9, adult
CPT/HCPCS: 36415; 71045-TC-FY; 80048; 80053; 80061; 82550; 83036; 83721; 83735; 84100; 84439; 84443; 84484; 85025; 85027; 85379; 93005; 93010; 93306-TC; 93351; 99284-25; G0378; J1644

== ENCOUNTER 2020-07-04 18:35 | Emergency (ER) | payer OTHER ==
[2020-07-04 18:53] VITALS: BMI 26.6
[2020-07-04] MEDS ORDERED: MECLIZINE HCL 25 MG TABLET (FP) PO ONE (19:40)
[2020-07-04] MEDS ORDERED: SODIUM CHLORIDE 0.9% 500 ML INFUS.BAG IV ONE ×2 (19:41→21:55)
[2020-07-04] MEDS ORDERED: MECLIZINE HCL 25 MG TABLET (FP) ONE (20:04)
[2020-07-04] MEDS ORDERED: dilTIAZem HCL 60 MG TABLET PO ONE (21:06)
[2020-07-04] MEDS ORDERED: dilTIAZem HCL 60 MG TABLET ONE (21:19)
[2020-07-04 21:24] LABS: BASO % 0.6 % (0-2.0); EOS % 0.4 % (0-4.5); HEMATOCRIT 45.1 % (32.4-45.2); LYMPH % 24.2 % (8-40); MCH 29.6 pg (25.7-33.7); MCHC 33.1 g/dl (32.0-36.0); MEAN CELL VOLUME 89.2 fl (80-96); MEAN PLT VOLUME 10.7 fl (7.5-11.1); NEUT % 69.8 % (42.8-82.8); PLATELET COUNT 237 K/MM3 (134-434); RBC 5.06 M/mm3 (3.60-5.2); RDW 13.5 % (11.6-15.6); WHITE BLOOD COUNT 7.4 K/mm3 (4.0-10.0)
[2020-07-04 21:27] VITALS: BP 136/95; PULSE 104; TEMP 98
[2020-07-04 21:44] LABS: CHLORIDE 106 mmol/L (98-107); POTASSIUM 4.1 mmol/L (3.5-5.1); SODIUM 140 mmol/L (136-145)
[2020-07-04 21:47] LABS: ALBUMIN 4.3 g/dl (3.4-5.0); ANION GAP 8 MMOL/L (8-16); BLOOD UREA NITROGEN 13.8 mg/dL (7-18); CO2 26 mmol/L (21-32); GLUCOSE,RANDOM 87 mg/dL (74-106); MAGNESIUM 1.8 mg/dL (1.8-2.4)
[2020-07-04 21:50] LABS: CREATININE 0.9 mg/dL (0.55-1.3); PHOSPHOROUS 3.5 mg/dL (2.5-4.9); SGOT/AST 16 U/L (15-37); SGPT/ALT 18 U/L (13-61)
[2020-07-04 21:51] LABS: BILIRUBIN,TOTAL 0.4 mg/dL (0.2-1); TOT PROT 8.3 g/dl (6.4-8.2)
[2020-07-04 21:53] LABS: ALK PHOS 79 U/L (45-117)
[2020-07-04 22:01] LABS: CHOLESTEROL 214 mg/dL (50-200); TRIGLYCERIDES 127 mg/dL (0-150)
[2020-07-04 22:02] LABS: LDL CHOLESTEROL (ONLY SJRH) 122 mg/dL (5-100)
[2020-07-04 22:04] LABS: HDL CHOLESTEROL 76 mg/dL (40-60)
== END 2020-07-04 22:44 | disposition home or self-care (01) ==
LOC: JER 18:35
DX: R00.2 Palpitations (principal); R42 Dizziness and giddiness; R00.0 Tachycardia, unspecified
CPT/HCPCS: 36415; 70450-TC; 71046-TC-FY; 80053; 80061; 82550; 83721; 83735; 84100; 84443; 84484; 85025; 85730; 93005; 93010; 99285-25

== ENCOUNTER 2020-07-06 20:07 | Inpatient (IN) | payer OTHER ==
[2020-07-06 23:44] LABS: BASO % 1.1 % (0-2.0); EOS % 1.2 % (0-4.5); HEMATOCRIT 43.9 % (32.4-45.2); HEMOGLOBIN 14.5 GM/dL (10.7-15.3); MCH 29.4 pg (25.7-33.7); MEAN CELL VOLUME 88.9 fl (80-96); MEAN PLT VOLUME 9.3 fl (7.5-11.1); MONO % 6.8 % (3.8-10.2); NEUT % 57.9 % (42.8-82.8); PLATELET COUNT 220 K/MM3 (134-434); RBC 4.94 M/mm3 (3.60-5.2); RDW 13.6 % (11.6-15.6); WHITE BLOOD COUNT 7.3 K/mm3 (4.0-10.0)
[2020-07-07 00:11] LABS: CHLORIDE 109 mmol/L (98-107); POTASSIUM 3.8 mmol/L (3.5-5.1); SODIUM 140 mmol/L (136-145)
[2020-07-07 00:16] LABS: ALBUMIN 4.1 g/dl (3.4-5.0); ANION GAP 7 MMOL/L (8-16); BLOOD UREA NITROGEN 19.2 mg/dL (7-18); CALCIUM 9.7 mg/dL (8.5-10.1); CO2 24 mmol/L (21-32); GLUCOSE,RANDOM 87 mg/dL (74-106)
[2020-07-07 00:19] LABS: CHOLESTEROL 217 mg/dL (50-200); CREATININE 0.9 mg/dL (0.55-1.3); SGOT/AST 16 U/L (15-37); SGPT/ALT 19 U/L (13-61); TRIGLYCERIDES 82 mg/dL (0-150)
[2020-07-07 00:20] LABS: BILIRUBIN,TOTAL 0.5 mg/dL (0.2-1); LDL CHOLESTEROL (ONLY SJRH) 122 mg/dL (5-100); TOT PROT 7.8 g/dl (6.4-8.2)
[2020-07-07 00:21] LABS: ALK PHOS 75 U/L (45-117); HDL CHOLESTEROL 75 mg/dL (40-60)
[2020-07-07] MEDS ORDERED: MECLIZINE HCL 25 MG TABLET (FP) PO ONE (00:23)
[2020-07-07] MEDS ORDERED: ASPIRIN 81 MG CHEWABLE TABLETS PO ONE (00:23)
[2020-07-07] MEDS ORDERED: SODIUM CHLORIDE 1,000 ML IV STA (00:23)
[2020-07-07 00:24] LABS: N-TERMINAL BNP 10.6 pg/ml (5-125)
[2020-07-07] MEDS ORDERED: MECLIZINE HCL 25 MG TABLET (FP) ONE (01:39)
[2020-07-07] MEDS ORDERED: ASPIRIN 81 MG CHEWABLE TABLETS ONE (01:39)
[2020-07-07] MEDS ORDERED: SODIUM CHLORIDE 1,000 ML IV SCH (01:45)
[2020-07-07 04:43] VITALS: BMI 27.1
[2020-07-07] MEDS: MECLIZINE HCL 25 MG TABLET (FP) PO SCH ×3 (06:17→21:51)
[2020-07-07] MEDS: PANTOPRAZOLE 40 MG TABLET PO SCH (09:13)
[2020-07-07] MEDS: dilTIAZem HCL 60 MG TABLET PO SCH ×2 (09:13→21:52)
[2020-07-07] MEDS: TOPIRAMATE 100 MG TABLET PO SCH ×2 (09:14→21:52)
[2020-07-07 09:36] LABS: HEMOGLOBIN 13.1 GM/dL (10.7-15.3); MCH 29.8 pg (25.7-33.7); MCHC 33.7 g/dl (32.0-36.0); MEAN CELL VOLUME 88.4 fl (80-96); MEAN PLT VOLUME 9.9 fl (7.5-11.1); PLATELET COUNT 192 K/MM3 (134-434); RBC 4.41 M/mm3 (3.60-5.2); RDW 13.1 % (11.6-15.6); WHITE BLOOD COUNT 5.8 K/mm3 (4.0-10.0)
[2020-07-07 09:50] LABS: POTASSIUM 3.6 mmol/L (3.5-5.1)
[2020-07-07] MEDS ORDERED: TOPIRAMATE 25 MG TABLET PO SCH (10:00)
[2020-07-07 10:48] LABS: BLOOD UREA NITROGEN 17.3 mg/dL (7-18)
[2020-07-07 10:51] LABS: CREATININE 0.8 mg/dL (0.55-1.3)
[2020-07-07] MEDS ORDERED: ACETAMINOPHEN 325 MG TABLET (FP) PO PRN (17:20)
[2020-07-07] MEDS: ACETAMINOPHEN 325 MG TABLET (FP) PO PRN (17:40)
[2020-07-07] MEDS ORDERED: PT OWN MED DRAWER 7, Y5N ONE (21:49)
[2020-07-08] MEDS: MECLIZINE HCL 25 MG TABLET (FP) PO SCH ×3 (06:29→21:12)
[2020-07-08 08:05] LABS: BASO % 0.7 % (0-2.0); EOS % 4.3 % (0-4.5); HEMATOCRIT 39.1 % (32.4-45.2); HEMOGLOBIN 13.3 GM/dL (10.7-15.3); LYMPH % 38.1 % (8-40); MCH 30.2 pg (25.7-33.7); MEAN CELL VOLUME 88.8 fl (80-96); MEAN PLT VOLUME 9.7 fl (7.5-11.1); MONO % 7.3 % (3.8-10.2); NEUT % 49.6 % (42.8-82.8); PLATELET COUNT 197 K/MM3 (134-434); RBC 4.41 M/mm3 (3.60-5.2); RDW 13.5 % (11.6-15.6); WHITE BLOOD COUNT 6.5 K/mm3 (4.0-10.0)
[2020-07-08 08:27] LABS: POTASSIUM 3.9 mmol/L (3.5-5.1)
[2020-07-08 08:29] LABS: ALBUMIN 3.6 g/dl (3.4-5.0); BLOOD UREA NITROGEN 16.3 mg/dL (7-18); CALCIUM 8.9 mg/dL (8.5-10.1)
[2020-07-08 08:32] LABS: CREATININE 0.8 mg/dL (0.55-1.3)
[2020-07-08 08:34] LABS: BILIRUBIN,TOTAL 0.3 mg/dL (0.2-1); TOT PROT 7.1 g/dl (6.4-8.2)
[2020-07-08] MEDS: ACETAMINOPHEN 325 MG TABLET (FP) PO PRN ×2 (08:48→18:53)
[2020-07-08] MEDS ORDERED: PT OWN MED DRAWER 7, Y5N ONE ×2 (09:16→21:06)
[2020-07-08] MEDS: PANTOPRAZOLE 40 MG TABLET PO SCH (10:06)
[2020-07-08] MEDS: ENOXAPARIN NA (PORCINE) 40 MG/0.4 ML DISP.SYRIN SQ SCH (10:06)
[2020-07-08] MEDS: TOPIRAMATE 100 MG TABLET PO SCH ×2 (10:06→21:13)
[2020-07-08] MEDS: dilTIAZem HCL 60 MG TABLET PO SCH ×2 (10:06→21:13)
[2020-07-08] MEDS ORDERED: ATORVASTATIN CA 10 MG TABLET (FP) PO SCH (22:00)
[2020-07-08] MEDS: SENNOSIDES 8.6MG TABLET (FP) PO PRN (22:57)
[2020-07-09] MEDS: MECLIZINE HCL 25 MG TABLET (FP) PO SCH ×3 (06:37→21:28)
[2020-07-09 09:05] LABS: BASO % 0.7 % (0-2.0); EOS % 3.4 % (0-4.5); HEMATOCRIT 40.6 % (32.4-45.2); HEMOGLOBIN 13.5 GM/dL (10.7-15.3); LYMPH % 38.9 % (8-40); MCH 29.7 pg (25.7-33.7); MCHC 33.2 g/dl (32.0-36.0); MEAN CELL VOLUME 89.5 fl (80-96); MEAN PLT VOLUME 10.6 fl (7.5-11.1); MONO % 6.8 % (3.8-10.2); NEUT % 50.2 % (42.8-82.8); PLATELET COUNT 193 K/MM3 (134-434); RBC 4.53 M/mm3 (3.60-5.2); RDW 13.2 % (11.6-15.6); WHITE BLOOD COUNT 6.1 K/mm3 (4.0-10.0)
[2020-07-09] MEDS ORDERED: PT OWN MED DRAWER 7, Y5N ONE (09:18)
[2020-07-09 09:31] LABS: CALCIUM 9.2 mg/dL (8.5-10.1)
[2020-07-09 09:32] LABS: ALBUMIN 3.6 g/dl (3.4-5.0); BLOOD UREA NITROGEN 13.6 mg/dL (7-18); MAGNESIUM 2.1 mg/dL (1.8-2.4)
[2020-07-09 09:35] LABS: CREATININE 0.8 mg/dL (0.55-1.3)
[2020-07-09 09:36] LABS: BILIRUBIN,TOTAL 0.6 mg/dL (0.2-1)
[2020-07-09 09:37] LABS: TOT PROT 7.3 g/dl (6.4-8.2)
[2020-07-09] MEDS: ENOXAPARIN NA (PORCINE) 40 MG/0.4 ML DISP.SYRIN SQ SCH (10:01)
[2020-07-09] MEDS: PANTOPRAZOLE 40 MG TABLET PO SCH (10:01)
[2020-07-09] MEDS: dilTIAZem HCL 60 MG TABLET PO SCH ×2 (10:01→21:28)
[2020-07-09] MEDS: TOPIRAMATE 100 MG TABLET PO SCH ×2 (10:01→21:29)
[2020-07-09] MEDS ORDERED: LACTULOSE 20 GM/30 ML UDC (FOR ORAL USE ONLY) PO ONE (12:35)
[2020-07-09] MEDS: ACETAMINOPHEN 325 MG TABLET (FP) PO PRN (16:29)
[2020-07-09] MEDS: DOCUSATE SODIUM 100 MG CAPSULE (FP) PO SCH (21:29)
[2020-07-09] MEDS ORDERED: SODIUM PHOSPHATE/NA BIPHOS 133 ML ENEMA PR ONE (21:39)
[2020-07-10] MEDS: MECLIZINE HCL 25 MG TABLET (FP) PO SCH ×3 (06:33→21:15)
[2020-07-10 07:54] LABS: BASO % 0.7 % (0-2.0); EOS % 3.1 % (0-4.5); HEMOGLOBIN 14.3 GM/dL (10.7-15.3); LYMPH % 37.8 % (8-40); MEAN CELL VOLUME 88.1 fl (80-96); MONO % 6.4 % (3.8-10.2); PLATELET COUNT 210 K/MM3 (134-434); RBC 4.77 M/mm3 (3.60-5.2); WHITE BLOOD COUNT 6.4 K/mm3 (4.0-10.0)
[2020-07-10 08:00] LABS: ALBUMIN 3.7 g/dl (3.4-5.0); BLOOD UREA NITROGEN 17.3 mg/dL (7-18); CALCIUM 9.2 mg/dL (8.5-10.1)
[2020-07-10 08:01] LABS: MAGNESIUM 1.9 mg/dL (1.8-2.4)
[2020-07-10 08:03] LABS: CREATININE 0.9 mg/dL (0.55-1.3)
[2020-07-10 08:05] LABS: BILIRUBIN,TOTAL 0.4 mg/dL (0.2-1); TOT PROT 7.4 g/dl (6.4-8.2)
[2020-07-10] MEDS: ENOXAPARIN NA (PORCINE) 40 MG/0.4 ML DISP.SYRIN SQ SCH (09:52)
[2020-07-10] MEDS: dilTIAZem HCL 60 MG TABLET PO SCH ×2 (09:53→21:15)
[2020-07-10] MEDS: PANTOPRAZOLE 40 MG TABLET PO SCH (09:53)
[2020-07-10] MEDS: TOPIRAMATE 100 MG TABLET PO SCH ×2 (09:53→21:15)
[2020-07-10] MEDS: ACETAMINOPHEN 325 MG TABLET (FP) PO PRN (16:09)
[2020-07-10] MEDS ORDERED: PT OWN MED DRAWER 7, Y5N ONE (21:05)
[2020-07-10] MEDS: DOCUSATE SODIUM 100 MG CAPSULE (FP) PO SCH (21:14)
[2020-07-11] MEDS: MECLIZINE HCL 25 MG TABLET (FP) PO SCH ×3 (06:22→21:36)
[2020-07-11] MEDS: ACETAMINOPHEN 325 MG TABLET (FP) PO PRN ×3 (06:24→23:08)
[2020-07-11 07:16] LABS: BASO % 0.8 % (0-2.0); EOS % 3.2 % (0-4.5); HEMATOCRIT 41.9 % (32.4-45.2); HEMOGLOBIN 14.2 GM/dL (10.7-15.3); LYMPH % 39.5 % (8-40); MCH 29.9 pg (25.7-33.7); MCHC 33.9 g/dl (32.0-36.0); MEAN CELL VOLUME 88.3 fl (80-96); MEAN PLT VOLUME 9.8 fl (7.5-11.1); MONO % 7.6 % (3.8-10.2); NEUT % 48.9 % (42.8-82.8); PLATELET COUNT 189 K/MM3 (134-434); RBC 4.74 M/mm3 (3.60-5.2); RDW 13.3 % (11.6-15.6)
[2020-07-11 07:38] LABS: POTASSIUM 3.9 mmol/L (3.5-5.1)
[2020-07-11 07:41] LABS: ALBUMIN 3.6 g/dl (3.4-5.0)
[2020-07-11 07:42] LABS: BLOOD UREA NITROGEN 16.2 mg/dL (7-18); CALCIUM 9.2 mg/dL (8.5-10.1); MAGNESIUM 2.1 mg/dL (1.8-2.4)
[2020-07-11 07:45] LABS: CREATININE 0.8 mg/dL (0.55-1.3)
[2020-07-11 07:46] LABS: BILIRUBIN,TOTAL 0.8 mg/dL (0.2-1)
[2020-07-11 07:47] LABS: TOT PROT 7.2 g/dl (6.4-8.2)
[2020-07-11] MEDS ORDERED: PT OWN MED DRAWER 7, Y5N ONE ×2 (09:14→21:33)
[2020-07-11] MEDS: dilTIAZem HCL 60 MG TABLET PO SCH ×2 (09:22→21:35)
[2020-07-11] MEDS: ENOXAPARIN NA (PORCINE) 40 MG/0.4 ML DISP.SYRIN SQ SCH (09:22)
[2020-07-11] MEDS: TOPIRAMATE 100 MG TABLET PO SCH ×2 (09:22→21:35)
[2020-07-11] MEDS: PANTOPRAZOLE 40 MG TABLET PO SCH (09:22)
[2020-07-11] MEDS: DOCUSATE SODIUM 100 MG CAPSULE (FP) PO SCH (21:35)
[2020-07-11] MEDS: SENNOSIDES 8.6MG TABLET (FP) PO PRN (21:36)
[2020-07-12] MEDS: MECLIZINE HCL 25 MG TABLET (FP) PO SCH ×2 (07:06→13:18)
[2020-07-12 08:08] LABS: ALBUMIN 3.6 g/dl (3.4-5.0)
[2020-07-12 08:09] LABS: BLOOD UREA NITROGEN 16.1 mg/dL (7-18); CALCIUM 9.3 mg/dL (8.5-10.1); MAGNESIUM 2.1 mg/dL (1.8-2.4)
[2020-07-12 08:12] LABS: CREATININE 0.9 mg/dL (0.55-1.3); TOT PROT 7.2 g/dl (6.4-8.2)
[2020-07-12 08:13] LABS: BILIRUBIN,TOTAL 0.3 mg/dL (0.2-1)
[2020-07-12 08:14] LABS: BASO % 0.9 % (0-2.0); EOS % 3.7 % (0-4.5); HEMATOCRIT 40.8 % (32.4-45.2); HEMOGLOBIN 13.7 GM/dL (10.7-15.3); LYMPH % 38.4 % (8-40); MCH 29.8 pg (25.7-33.7); MCHC 33.6 g/dl (32.0-36.0); MEAN CELL VOLUME 88.8 fl (80-96); MEAN PLT VOLUME 9.7 fl (7.5-11.1); MONO % 6.9 % (3.8-10.2); NEUT % 50.1 % (42.8-82.8); PLATELET COUNT 193 K/MM3 (134-434)
[2020-07-12] MEDS ORDERED: PT OWN MED DRAWER 7, Y5N ONE (09:03)
[2020-07-12] MEDS: ENOXAPARIN NA (PORCINE) 40 MG/0.4 ML DISP.SYRIN SQ SCH (09:11)
[2020-07-12] MEDS: TOPIRAMATE 100 MG TABLET PO SCH (09:12)
[2020-07-12] MEDS: dilTIAZem HCL 60 MG TABLET PO SCH (09:12)
[2020-07-12] MEDS: PANTOPRAZOLE 40 MG TABLET PO SCH (09:12)
[2020-07-12] MEDS: ACETAMINOPHEN 325 MG TABLET (FP) PO PRN (12:20)
[2020-07-12 13:23] VITALS: BP 127/87; PULSE 96; TEMP 98.1
== END 2020-07-12 17:57 | disposition home or self-care (01) | DRG 149 ==
LOC: JER 20:07 → JERBED 07-07 01:40 → J4S 07-07 03:26
PROVIDERS: ADMIT Hospitalist; ATTEND Nurse Practitioner Family
DX: R42 Dizziness and giddiness (principal); G43.909 Migraine, unspecified, not intractable, without status migrainosus; K21.9 Gastro-esophageal reflux disease without esophagitis; I10 Essential (primary) hypertension; F41.9 Anxiety disorder, unspecified; R00.0 Tachycardia, unspecified; K59.00 Constipation, unspecified; E78.5 Hyperlipidemia, unspecified; Z20.822 Contact with and (suspected) exposure to COVID-19
CPT/HCPCS: 36415; 70450-TC; 70544-TC; 70547-TC; 70551-TC; 71045-TC-FY; 80048; 80053; 80061; 81003; 82550; 83721; 83735; 83880; 84436; 84439; 84443; 84479; 84484; 85025; 85027; 86769; 93005; 93010; 93306-TC; 97116-GP; 99285-25; C9803; U0003

== ENCOUNTER 2021-07-03 23:37 | Emergency (ER) | payer OTHER ==
[2021-07-03 23:47] VITALS: TEMP 98; BMI 27.2
[2021-07-04] MEDS ORDERED: SODIUM CHLORIDE 0.9% 500 ML INFUS.BAG IV ONE (02:28)
[2021-07-04] MEDS ORDERED: METOCLOPRAMIDE HCL INJECTION 10 MG/2 ML VIAL IVPUSH ONE (02:28)
[2021-07-04] MEDS ORDERED: ACETAMINOPHEN 1000 MG/100 ML BAG IVPB ONE (02:28)
[2021-07-04] MEDS ORDERED: ACETAMINOPHEN INJECTION 100 ML IVPB ONE (02:37)
[2021-07-04] MEDS ORDERED: METOCLOPRAMIDE HCL INJECTION 10 MG/2 ML VIAL ONE (02:37)
[2021-07-04 03:08] LABS: BASO % 0.6 % (0-2.0); EOS % 1.5 % (0-4.5); HEMATOCRIT 40.5 % (32.4-45.2); HEMOGLOBIN 13.7 GM/dL (10.7-15.3); LYMPH % 42.5 % (8-40); MCH 29.8 pg (25.7-33.7); MCHC 33.8 g/dl (32.0-36.0); MEAN CELL VOLUME 88.2 fl (80-96); MEAN PLT VOLUME 8.7 fl (7.5-11.1); MONO % 7.8 % (3.8-10.2); NEUT % 47.6 % (42.8-82.8); PLATELET COUNT 213 10^3/uL (134-434); RBC 4.59 M/mm3 (3.60-5.2); RDW 12.5 % (11.6-15.6); WHITE BLOOD COUNT 5.7 K/mm3 (4.0-10.0)
[2021-07-04 03:28] LABS: CALCIUM 9.5 mg/dL (8.5-10.1)
[2021-07-04 03:29] LABS: ALBUMIN 3.8 g/dl (3.4-5.0); BLOOD UREA NITROGEN 26.7 mg/dL (7-18)
[2021-07-04 03:32] LABS: CREATININE 0.9 mg/dL (0.55-1.3)
[2021-07-04 03:34] LABS: BILIRUBIN,TOTAL 0.3 mg/dL (0.2-1); TOT PROT 7.5 g/dl (6.4-8.2)
[2021-07-04 06:39] VITALS: BP 122/84; PULSE 72
== END 2021-07-04 06:39 | disposition home or self-care (01) ==
LOC: JER 23:37
PROC: 3E0333Z Introduction of Anti-inflammatory into Peripheral Vein, Percutaneous Approach (ICD-10-PCS; principal; 2021-07-03)
PROC: 3E033GC Introduction of Other Therapeutic Substance into Peripheral Vein, Percutaneous Approach (ICD-10-PCS; 2021-07-03)
DX: R51.9 Headache, unspecified (principal); I10 Essential (primary) hypertension
CPT/HCPCS: 36415; 80053; 82550; 84484; 85025; 93005; 93010; 99285-25